=== PATIENT | female | born 2000 | race Caucasian/White ===

== ENCOUNTER 2018-06-23 23:45 | Emergency (ER) | payer OTHER ==
[~2018-06-23] VITALS: Ht 152.4 cm; Wt 47.6 kg
[2018-06-23 23:54] VITALS: BP 137/90
--- NOTE | 2018-06-23 23:57 | NUR ---
PT AMBULATORY TO ER LOBBY W/ STEADY GAIT IN STABLE CONDITION.
--- NOTE | 2018-06-24 00:24 | NUR ---
PT TAKEN TO BED 5
[2018-06-24 01:11] LABS: BASOPHILS % (AUTO) 0.4 % (0.0-2.0); EOSINOPHILS % (AUTO) 0.4 % (0.0-4.0); HEMATOCRIT 42.4 % (36-48); HEMOGLOBIN 14.1 g/dL (12.0-16.0); LYMPHOCYTES # (AUTO) 2.4 K/uL (2.5-16.5); LYMPHOCYTES % (AUTO) 27.7 % (20.5-51.1); MEAN CORPUSCULAR HEMOGLOBIN 31 pg (27-31); MEAN CORPUSCULAR HGB CONC 33 g/dL (33-37); MONOCYTES # (AUTO) 0.5 K/uL (0.8-1.0); MONOCYTES % (AUTO) 5.8 % (1.7-9.3); NEUTROPHILS # (AUTO) 5.6 K/uL (1.8-7.7); NEUTROPHILS % (AUTO) 65.7 % (42.2-75.2); PLATELET COUNT (AUTO) 263 K/uL (140-450); RED BLOOD CELL COUNT(AUTO) 4.56 MIL/uL (4.20-5.40); RED CELL DISTRIBUTION WIDTH 12.7 % (11.6-13.7); WHITE BLOOD COUNT (AUTO) 8.6 K/uL (4.5-11.0)
[2018-06-24 01:20] LABS: ANION GAP 9.2 (8-16); CARBON DIOXIDE 27.8 mmol/L (21-32); CREATININE 0.7 mg/dL (0.6-1.3)
--- NOTE | 2018-06-24 01:21 | NUR ---
PT BIB SELF FOR ON AND OFF CHEST PAIN X3 MONTHS. PT REPORTS DIFFERENT TYPES OF PAIN AND CURRENTLY REPORTS NO PAIN, BUT PRESSURE IN L CHEST. HEART RRR, CAP REFIL<3 SEC, NO EDEMA PRESENT. PT ALSO REPORTS SOB, RR SYMMETRICAL, NON-LABORED, LUNG SOUNDS CLEAR THROUGHOUT, O2 SAT CURRENTLY AT 100% ON ROOM AIR. PT EXHIBITS EXOPTHALMUS. ER MD TO SEE PT. SAFETY PRECAUTIONS IN PLACE, WILL CONTINUE TO MONITOR. MEDHX:NONE RX: MITRONIDAZOLE
[2018-06-24 01:34] LABS: ALBUMIN 4.3 g/dL (3.4-5.0); THYROID STIMULATING HORMONE 2.09 uIU/mL (0.34-3.74); TOTAL BILIRUBIN 0.4 mg/dL (0.0-1.0)
--- NOTE | 2018-06-24 01:56 | NUR ---
PT RETURNED FROM CT AT THIS TIME.
[2018-06-24 03:00] VITALS: BP 123/71
--- NOTE | 2018-06-24 03:00 | NUR ---
Patient discharged by Dr Gan with v/s stable. Written and verbal after care instructions given and explained. Patient verbalized understanding. Ambulatory with steady gait. All questions addressed prior to discharge. Advised to follow up with PMD.
== END 2018-06-24 03:00 | disposition home or self-care (01) ==
LOC: MED 23:45
DX: F41.1 Generalized anxiety disorder (principal); E01.0 Iodine-deficiency related diffuse (endemic) goiter; H05.20 Unspecified exophthalmos; Z88.1 Allergy status to other antibiotic agents
CPT/HCPCS: 36415; 70490; 71250; 80053; 81025; 84443; 85025; 99284